=== PATIENT | female | born 1930 | race Caucasian/White ===

== ENCOUNTER 2017-04-06 10:07 | Emergency (ER) | payer OTHER ==
[~2017-04-06] VITALS: Ht 157.5 cm; Wt 61.2 kg
[~2017-04-06 10:07] MED LIST: ARI1 PO; LOSA50TA3 PO; SIMV10TA2 PO
[2017-04-06 10:14] VITALS: BP_SYST 162
[2017-04-06 10:41] VITALS: BP_SYST 164
== END 2017-04-06 10:41 | disposition home or self-care (01) ==
LOC: SED 10:07
DX: S20.461A Insect bite (nonvenomous) of right back wall of thorax, initial encounter (principal); I10 Essential (primary) hypertension; I48.91 Unspecified atrial fibrillation; W57.XXXA Bitten or stung by nonvenomous insect and other nonvenomous arthropods, initial encounter; Y93.89 Activity, other specified; Y92.89 Other specified places as the place of occurrence of the external cause; Y99.8 Other external cause status
CPT/HCPCS: 99283